=== PATIENT | male | born 1995 | race African-American/Black ===

== ENCOUNTER 2019-01-10 18:25 | Emergency (ER) | payer SELFPAY ==
[2019-01-10] MEDS ORDERED: KETOROLAC TROMETHAMINE 60 MG/2 ML SDV IM ONE (19:42)
--- NOTE | 2019-01-10 19:42 | ER Document Report ---
HPI - HPI Time Seen by Provider: 01/10/19 18:30 Pain Level: 5 Notes: 24-year-old male presents to the ED for complaints of dental pain x2 days. States he has had feelings that have come out. Patient recently moved from [place] this area, does not have a dentist. Patient is a smoker. Pain is 7 out of 10, throbbing achy. Has not tried any [id number] medications. Worse with time, nothing makes better. Is not currently on any antibiotics. Does not have an active dental appointment with his dentist. Denies fevers, chills, chest pain,palpitations, shortness of breath, dyspnea, nausea, vomiting, diarrhea, abdominal pain, hematuria,blurred vision, double vision, loss of vision, speech changes, LH, dizziness, syncope, headaches, wheezing, ST, URI, neck pain, weakness, bowel or bladder dysfunction, saddle anesthesia, numbness or tingling in bilateral upper or lower extremities equally, muscle paralysis, weakness in bilateral upper or lower extremities equally or rash. Past Medical History - General Information source: Patient - Social History Smoking Status: Current Every Day Smoker Family History: Reviewed & Not Pertinent Vertical Provider Document - CONSTITUTIONAL Agree With Documented VS: Yes Exam Limitations: No Limitations Notes: PHYSICAL EXAMINATION: GENERAL: Well-appearing, well-nourished and in no acute distress. HEAD: Atraumatic, normocephalic. EYES: Pupils equal round and reactive to light, extraocular movements intact, sclera anicteric, conjunctiva are normal. ENT: Nares patent, oropharynx clear without exudates. Moist mucous membranes. #27 gingiva with swelling, erythema and induration. No drainage or open wounds. No fluctuance. No facial swelling. Poor oral dentition, right lower jaw with mild dental caries, no definite swelling or effusion. NECK: Normal range of motion, supple without lymphadenopathy LUNGS: Breath sounds clear to auscultation bilaterally and equal. No wheezes rales or rhonchi. HEART: Regular rate and rhythm without murmurs ABDOMEN: Soft, nontender, nondistended abdomen. No guarding, no rebound. No masses appreciated. Musculoskeletal: Normal range of motion, no pitting or edema. No cyanosis. NEUROLOGICAL: Cranial nerves grossly intact. Normal speech, normal gait. Normal sensory, motor exams PSYCH: Normal mood, normal affect. SKIN: Warm, Dry, normal turgor, no rashes or lesions noted. - INFECTION CONTROL TRAVEL OUTSIDE OF THE [place] IN LAST 30 DAYS: No Course - Re-evaluation Re-evalutation: 01/10/19 19:37 Afebrile vital stable no distress. Nursing notes reviewed. Start clindamycin for dental carry, follow-up with dentist as well as primary care provider. Referrals have been provided. Warm compress to mouth 20 minutes on 20 minutes off several times a day. Avoid hot foods or spicy foods. Take antibiotics with food to prevent GI upset, take probiotic to prevent diarrhea. Alternate between Tylenol and naproxen as directed. After performing a Medical Screening Examination, I estimate there is LOW risk for a DEEP SPACE INFECTION (e.g., HERIBERTO'S ANGINA OR RETROPHARYNGEAL ABSCESS), MENINGITIS, INTRACRANIAL HEMORRHAGE, or AIRWAY COMPROMISE, thus I consider the discharge disposition reasonable. Also, there is no evidence or peritonitis, sepsis, or toxicity. I have reevaluated this patient multiple times and no significant life threatening changes are noted. The patient and I have discussed the diagnosis and risks, and we agree with discharging home with close follow-up with the understanding that symptoms and presentations can change. We also discussed returning to the Emergency Department immediately if new or worsening symptoms occur. We have discussed the symptoms which are most concerning (e.g., changing or worsening pain, trouble swallowing or breathing, neck stiffness or fever) that necessitate immediate return. 01/10/19 19:47 - Vital Signs Vital signs: Temp Pulse Resp BP Pulse Ox 98.6 F 48 L 15 139/63 H 99 01/10/19 18:31 01/10/19 18:31 01/10/19 18:31 01/10/19 18:31 01/10/19 18:31 Discharge - Discharge Clinical Impression: Dental caries Condition: Stable Disposition: HOME, SELF-CARE Instructions: Clindamycin ([facility]), Toothache ([facility]), Oral Narcotic Medication ([facility]), [facility], Dentist Additional Instructions: Dental Infection or Abscess You have an infection, perhaps an abscess (pus formation) of the gum around one of your teeth, which is probably decayed. If there is an abscess, it may drain on its own or it may need to be opened or lanced. Severe swelling or drainage around a tooth usually means a deep dental abscess which usually requires evaluation and treatment by a dentist or oral surgeon. Antibiotics may be prescribed while awaiting dental treatment. If you develop high fever with chills, worsening pain, or increasing swelling in the area, see a dentist or oral surgeon immediately or return to the Emergency Department immediately. Take antibiotic as directed. Take with food. Take naproxen as needed for pain control. Follow-up with dentist. Return immediately for any new or worsening symptoms. Follow up with primary care provider, call tomorrow to make followup appointment. Prescriptions: Clindamycin HCl 300 mg PO Q6H #28 capsule Naproxen 500 mg PO BID #10 tablet Referrals: TASHI AMBROCIO MD [ACTIVE STAFF] - Follow up as needed
[2019-01-10 20:08] VITALS: BP 140/72
== END 2019-01-10 20:00 | disposition home or self-care (01) ==
LOC: ER 18:25
DX: K02.9 Dental caries, unspecified (principal); K08.89 Other specified disorders of teeth and supporting structures; F17.200 Nicotine dependence, unspecified, uncomplicated
CPT/HCPCS: 99282; 96372; J1885